=== PATIENT | male | born 1950 | race Caucasian/White ===

== ENCOUNTER → 2021-10-27 | Day surgery (SDC) | payer MEDICARE ==
[2021-10-25 12:28] VITALS: BMI 33.0
[~2021-10-27] MED LIST: Lidocaine 1% PF 5 ML VIAL ONE; Sodium Bicarbonate 2.5 MEQ/5 ML VIAL ONE
== END ==
LOC: ULT 13:14
PROVIDERS: ATTEND Specialist
PROC: 0G9H3ZX Drainage of Right Thyroid Gland Lobe, Percutaneous Approach, Diagnostic (ICD-10-PCS; principal; 2021-10-27)
DX: E04.1 Nontoxic single thyroid nodule (principal); Z79.02 Long term (current) use of antithrombotics/antiplatelets; Z79.82 Long term (current) use of aspirin; Z79.84 Long term (current) use of oral hypoglycemic drugs; Z79.899 Other long term (current) drug therapy
CPT/HCPCS: 60100; 76942; 88173

== ENCOUNTER 2021-11-14 06:53 | Outpatient (CLI) | payer MEDICARE ==
[2021-11-14 07:59] LABS: Hemoglobin 12.4 g/dL (13.5-17.5); Mean Corpuscular HGB CONC 31.6 g/dL (32.0-36.0); Mean Corpuscular Hemoglobin 28.8 pg (27.0-33.0); Mean Corpuscular Volume 91.2 fl (81.2-95.1); Mean Platelet Volume 9.6 fl (7.4-10.4); Platelet Count 269 10x3/uL (150-450); RBC Distribution Width 13.3 % (11.5-14.5); White Blood Cell (WBC) Count 7.4 10x3/uL (3.5-10.5)
[2021-11-14 08:09] LABS: Anion Gap 15 mmol/L (10-20); BUN (Urea Nitrogen) 35 mg/dL (8.4-25.7); Calc. Creatinine Clearance 0 mL/min (70-130); Calcium 9.7 mg/dL (7.8-10.44); Carbon Dioxide 27 mmol/L (23-31); Chloride 102 mmol/L (98-107); Glucose 142 mg/dL (80-115); Potassium 4.4 mmol/L (3.5-5.1); Sodium 140 mmol/L (136-145)
[2021-11-14 23:35] LABS: SARS-CoV-2 PCR by NAA DETECTED (NotDetected)
== END 2021-11-14 06:54 | disposition home or self-care (01) ==
LOC: LABBT 06:53
PROVIDERS: ATTEND Specialist
DX: Z01.812 Encounter for preprocedural laboratory examination (principal); U07.1 COVID-19; E04.1 Nontoxic single thyroid nodule
CPT/HCPCS: 80048; 85027; U0003; U0005

== ENCOUNTER 2022-01-30 07:54 | Outpatient (CLI) | payer MEDICARE | END 2022-01-30 07:55 | disposition home or self-care (01) | LOC: BICCT 07:54 | PROVIDERS: ATTEND Internal Medicine Critical Care Medicine | DX: R06.00 Dyspnea, unspecified (principal); J98.4 Other disorders of lung | CPT/HCPCS: 71250 ==

== ENCOUNTER 2022-11-09 08:10 | Outpatient (CLI) | payer MEDICARE | END 2022-11-09 08:11 | disposition home or self-care (01) | LOC: BICCT 08:10 | PROVIDERS: ATTEND Internal Medicine Critical Care Medicine | DX: J84.9 Interstitial pulmonary disease, unspecified (principal); R06.00 Dyspnea, unspecified | CPT/HCPCS: 71250 ==

== ENCOUNTER 2022-12-09 11:02 | Inpatient (IN) | payer MEDICARE ==
[2022-12-09 11:48] LABS: Actual Bicarbonate (HCO3v) 21 mEq/L (22-28); Base Excess -4.9 mEq/L (-2.0 to +3.0); Calcium, Ionized (venous) 1.08 mmol/L (1.16-1.32); Chloride (VBG) 106 mmol/L (98-106); Hemoglobin (Hb) 13.4 g/dL (12.6-17.4); Potassium (VBG) 4.43 mmol/L (3.70-5.30); pH (venous) 7.33 (7.32-7.43)
[2022-12-09 11:54] LABS: #Basophils 0.1 thou/uL (0.0-0.2); #Eosinphils 0.2 thou/uL (0.0-0.7); #Lymphocytes 1.2 thou/uL (1.20-3.40); #Monocytes 0.7 thou/uL (0.11-0.59); #Neutrophils 11.6 thou/uL (1.40-6.50); %Basophils 0.7 % (0.0-1.0); %Eosinophils 1.4 % (0.0-10.0); %Lymphocytes 8.4 % (21.0-51.0); %Monocytes 5.3 % (0.0-10.0); %Neutrophils 84.3 % (42.0-75.0); Hemoglobin 12.7 g/dL (14.0-18.0); Mean Corpuscular HGB CONC 32.9 g/dL (32.0-36.0); Mean Corpuscular Hemoglobin 31.1 pg (27.0-31.0); Mean Corpuscular Volume 94.3 fl (78.0-98.0); Mean Platelet Volume 7.4 fL (7.4-10.4); Platelet Count 294 10x3/uL (130-400); RBC Distribution Width 12.4 % (11.5-14.5); Red Blood Cell (RBC) Count 4.09 mill/uL (4.70-6.10); White Blood Cell (WBC) Count 13.8 10x3/uL (4.8-10.8)
[2022-12-09 12:03] LABS: Bilirubin Negative (Negative); Blood, Urine Negative (Negative); Clarity Clear (Clear); Glucose, Urine (Dipstick) Normal (Negative); Ketone, Urine Negative (Negative); Leukocyte Negative Leu/uL (Negative); Nitrite Negative (Negative); Protein, Urine (Dipstick) Negative (Neg-Trace); Specific Gravity, Urine 1.013 (1.002-1.036); Urobilinogen Normal mg/dL (Less than 2); pH, Urine 6.5 (5.0-9.0)
[2022-12-09] MEDS ORDERED: Iopamidol-370 76% 500 ML MDV (1 ML CHARGE) ONE (12:15)
[2022-12-09 12:16] LABS: ALT (SGPT) 24 U/L (8-55); AST (SGOT) 20 U/L (5-34); Albumin 4.5 g/dL (3.4-4.8); Alkaline Phosphatase 75 U/L (40-110); Anion Gap 17 mmol/L (10-20); BUN (Urea Nitrogen) 33 mg/dL (8.4-25.7); Bilirubin, Total 0.5 mg/dL (0.2-1.2); CK (CPK) 65 U/L (30-200); Calc. Creatinine Clearance 0 mL/min (70-130); Calcium 9.1 mg/dL (7.8-10.44); Carbon Dioxide 19 mmol/L (23-31); Chloride 108 mmol/L (98-107); Estimated GFR 46; Glucose 133 mg/dL (83-110); Magnesium 2.4 mg/dL (1.6-2.6); Protein, Total 7.5 g/dL (5.8-8.1); Sodium 140 mmol/L (136-145)
[2022-12-09] MEDS ORDERED: Ondansetron PF 4 MG/2 ML Vial ONE (12:39)
[2022-12-09] MEDS ORDERED: Aspirin Chewable 81 MG TAB ONE ×2 (15:28→15:49)
[2022-12-09] MEDS ORDERED: fentaNYL 50 mcg/mL 1 mL Vial ONE (15:39)
[2022-12-09] MEDS ORDERED: Senokot S 8.6-50 MG TAB PO PRN (18:31)
[2022-12-09] MEDS ORDERED: Acetaminophen 650 MG Suppository PR PRN (18:31)
[2022-12-09] MEDS ORDERED: Dextrose 5% in Water 1,000 ML IV PRN (19:26)
[2022-12-09] MEDS ORDERED: Dextrose 50% Abboject 50 ML SYRINGE SLOW IVP PRN (19:26)
[2022-12-09] MEDS: Pramipexole Di-HCl 1 MG TAB PO SCH (20:53)
[2022-12-09] MEDS: Rosuvastatin 20 MG TAB PO SCH (20:54)
[2022-12-09] MEDS: tiZANidine HCl 4 MG TAB PO SCH (21:00)
[2022-12-10] MEDS: Levothyroxine Sodium 50 MCG TAB PO SCH (05:37)
[2022-12-10] MEDS: tiZANidine HCl 4 MG TAB PO SCH ×3 (05:37→21:18)
[2022-12-10 06:06] LABS: #Eosinphils 0.4 thou/uL (0.0-0.7); #Lymphocytes 1.2 thou/uL (1.20-3.40); #Monocytes 0.6 thou/uL (0.11-0.59); #Neutrophils 6.2 thou/uL (1.40-6.50); %Basophils 0.6 % (0.0-1.0); %Eosinophils 4.5 % (0.0-10.0); %Lymphocytes 13.6 % (21.0-51.0); %Monocytes 7.5 % (0.0-10.0); %Neutrophils 73.9 % (42.0-75.0); Hemoglobin 11.6 g/dL (14.0-18.0); Mean Corpuscular HGB CONC 34.2 g/dL (32.0-36.0); Mean Corpuscular Volume 93.5 fl (78.0-98.0); Mean Platelet Volume 7.4 fL (7.4-10.4); Platelet Count 224 10x3/uL (130-400); RBC Distribution Width 12.5 % (11.5-14.5); Red Blood Cell (RBC) Count 3.63 mill/uL (4.70-6.10); White Blood Cell (WBC) Count 8.5 10x3/uL (4.8-10.8)
[2022-12-10 06:33] LABS: ALT (SGPT) 21 U/L (8-55); AST (SGOT) 23 U/L (5-34); Albumin 3.7 g/dL (3.4-4.8); Alkaline Phosphatase 69 U/L (40-110); Anion Gap 9 mmol/L (10-20); BUN (Urea Nitrogen) 30 mg/dL (8.4-25.7); Bilirubin, Total 0.5 mg/dL (0.2-1.2); Calc. Creatinine Clearance 58 mL/min (70-130); Calcium 9.1 mg/dL (7.8-10.44); Carbon Dioxide 25 mmol/L (23-31); Cardiac Risk 2.5 (Less than 4.5); Chloride 110 mmol/L (98-107); Cholesterol 84 mg/dl (< 200 Desired); Estimated GFR 42; Globulin 2.7 g/dL (2.4-3.5); Glucose 144 mg/dL (83-110); HDL Cholesterol 33 mg/dL (>60 Neg Risk); LDL Cholesterol, Calculated 35 mg/dL; Potassium 4.4 mmol/L (3.5-5.1); Protein, Total 6.4 g/dL (5.8-8.1); Sodium 140 mmol/L (136-145); Triglycerides 78 mg/dL (Less than 150)
[2022-12-10] MEDS: Multivitamin W/ Minerals 1 TAB PO SCH (08:58)
[2022-12-10] MEDS ORDERED: Amlodipine 10 MG TAB PO SCH (09:00)
[2022-12-10] MEDS ORDERED: Non-Formulary Item 1 EACH (Losartan Potassium [Losartan Potassium] 100 MG Tablet) PO SCH (09:00)
[2022-12-10] MEDS ORDERED: Aspirin Chewable 81 MG TAB PO SCH (09:00)
[2022-12-10] MEDS ORDERED: Clopidogrel Bisulfate 75 MG TAB PO SCH (09:00)
[2022-12-10] MEDS: HYDROcodone/Acetaminophen 5/325 mg Tablet PO PRN ×2 (09:04→21:16)
[2022-12-10] MEDS: Rosuvastatin 20 MG TAB PO SCH (21:18)
[2022-12-10] MEDS: Pramipexole Di-HCl 1 MG TAB PO SCH (23:48)
[2022-12-11] MEDS: Levothyroxine Sodium 50 MCG TAB PO SCH (07:43)
[2022-12-11] MEDS: tiZANidine HCl 4 MG TAB PO SCH ×3 (07:44→21:33)
[2022-12-11] MEDS: Multivitamin W/ Minerals 1 TAB PO SCH (08:25)
[2022-12-11 08:38] LABS: #Basophils 0.1 thou/uL (0.0-0.2); #Eosinphils 0.5 thou/uL (0.0-0.7); #Lymphocytes 1.3 thou/uL (1.20-3.40); #Monocytes 0.8 thou/uL (0.11-0.59); #Neutrophils 7.2 thou/uL (1.40-6.50); %Basophils 0.5 % (0.0-1.0); %Eosinophils 5.5 % (0.0-10.0); %Lymphocytes 12.9 % (21.0-51.0); %Monocytes 7.8 % (0.0-10.0); %Neutrophils 73.2 % (42.0-75.0); Hemoglobin 11.6 g/dL (14.0-18.0); Mean Corpuscular HGB CONC 33.2 g/dL (32.0-36.0); Mean Corpuscular Hemoglobin 30.9 pg (27.0-31.0); Mean Platelet Volume 7.1 fL (7.4-10.4); Platelet Count 230 10x3/uL (130-400); RBC Distribution Width 12.5 % (11.5-14.5); Red Blood Cell (RBC) Count 3.75 mill/uL (4.70-6.10); White Blood Cell (WBC) Count 9.9 10x3/uL (4.8-10.8)
[2022-12-11 08:55] LABS: Anion Gap 12 mmol/L (10-20); BUN (Urea Nitrogen) 25 mg/dL (8.4-25.7); Calc. Creatinine Clearance 66 mL/min (70-130); Calcium 9.3 mg/dL (7.8-10.44); Carbon Dioxide 23 mmol/L (23-31); Chloride 110 mmol/L (98-107); Estimated GFR 49; Glucose 105 mg/dL (83-110); Potassium 4.2 mmol/L (3.5-5.1); Sodium 141 mmol/L (136-145)
[2022-12-11] MEDS ORDERED: CEFAZOLIN 2 GM in Sodium Chloride 0.9% 100 ML IVPB SCH (09:00)
[2022-12-11] MEDS ORDERED: Polyethylene Glycol 3350 17 GM Packet PO PRN (13:10)
[2022-12-11] MEDS ORDERED: Bisacodyl 10 MG SUPP PR PRN (13:11)
[2022-12-11] MEDS ORDERED: Losartan 25 MG TAB PO SCH (13:15)
[2022-12-11] MEDS ORDERED: Polyethylene Glycol 3350 17 GM Packet PO SCH (13:15)
[2022-12-11] MEDS ORDERED: Amlodipine 10 MG TAB PO SCH (13:15)
[2022-12-11] MEDS: HumaLOG 300 UNITS/3 ML VIAL SC PRN (13:18)
[2022-12-11] MEDS ORDERED: Pramipexole Di-HCl 1 MG TAB PO SCH (14:00)
[2022-12-11] MEDS: Rosuvastatin 20 MG TAB PO SCH (21:32)
[2022-12-11] MEDS: HYDROcodone/Acetaminophen 5/325 mg Tablet PO PRN (21:33)
[2022-12-11 22:55] VITALS: BMI 32.6
[2022-12-12 05:13] LABS: #Eosinphils 0.6 thou/uL (0.0-0.7); #Lymphocytes 1.6 thou/uL (1.20-3.40); #Monocytes 0.8 thou/uL (0.11-0.59); #Neutrophils 5.3 thou/uL (1.40-6.50); %Basophils 0.6 % (0.0-1.0); %Eosinophils 7.2 % (0.0-10.0); %Lymphocytes 19.3 % (21.0-51.0); %Monocytes 9.9 % (0.0-10.0); %Neutrophils 63.1 % (42.0-75.0); Hemoglobin 11.4 g/dL (14.0-18.0); Mean Corpuscular HGB CONC 32.3 g/dL (32.0-36.0); Mean Corpuscular Hemoglobin 30.5 pg (27.0-31.0); Mean Corpuscular Volume 94.3 fl (78.0-98.0); Mean Platelet Volume 7.5 fL (7.4-10.4); Platelet Count 250 10x3/uL (130-400); RBC Distribution Width 12.5 % (11.5-14.5); Red Blood Cell (RBC) Count 3.73 mill/uL (4.70-6.10); White Blood Cell (WBC) Count 8.4 10x3/uL (4.8-10.8)
[2022-12-12 05:34] LABS: Anion Gap 9 mmol/L (10-20); BUN (Urea Nitrogen) 24 mg/dL (8.4-25.7); Calc. Creatinine Clearance 79 mL/min (70-130); Carbon Dioxide 19 mmol/L (23-31); Chloride 113 mmol/L (98-107); Estimated GFR 62; Glucose 123 mg/dL (83-110); Potassium 4.3 mmol/L (3.5-5.1); Sodium 137 mmol/L (136-145)
[2022-12-12] MEDS: tiZANidine HCl 4 MG TAB PO SCH ×3 (06:40→21:27)
[2022-12-12] MEDS: Levothyroxine Sodium 50 MCG TAB PO SCH (06:40)
[2022-12-12] MEDS: Amlodipine 10 MG TAB PO SCH (08:49)
[2022-12-12] MEDS: Losartan 25 MG TAB PO SCH (08:49)
[2022-12-12] MEDS: Multivitamin W/ Minerals 1 TAB PO SCH (08:49)
[2022-12-12] MEDS: Polyethylene Glycol 3350 17 GM Packet PO SCH (08:50)
[2022-12-12] MEDS: HumaLOG 300 UNITS/3 ML VIAL SC PRN (12:51)
[2022-12-12] MEDS: Pramipexole Di-HCl 1 MG TAB PO SCH (20:05)
[2022-12-12] MEDS: HYDROcodone/Acetaminophen 5/325 mg Tablet PO PRN (20:50)
[2022-12-12] MEDS: Rosuvastatin 20 MG TAB PO SCH (20:50)
[2022-12-12] MEDS ORDERED: Pramipexole Di-HCl 1 MG TAB PO SCH (21:00)
[2022-12-13] MEDS: Levothyroxine Sodium 50 MCG TAB PO SCH (05:32)
[2022-12-13] MEDS: tiZANidine HCl 4 MG TAB PO SCH ×3 (05:32→20:39)
[2022-12-13] MEDS ORDERED: Fentanyl 250 MCG/5 ML VIAL ONE (06:13)
[2022-12-13] MEDS ORDERED: Thrombin 5000 UNITS/5 ML VIAL ONE (06:24)
[2022-12-13 06:28] LABS: #Basophils 0.1 thou/uL (0.0-0.2); #Eosinphils 0.5 thou/uL (0.0-0.7); #Lymphocytes 1.6 thou/uL (1.20-3.40); #Monocytes 0.9 thou/uL (0.11-0.59); #Neutrophils 7.8 thou/uL (1.40-6.50); %Basophils 0.5 % (0.0-1.0); %Eosinophils 4.4 % (0.0-10.0); %Lymphocytes 14.7 % (21.0-51.0); %Monocytes 8.4 % (0.0-10.0); Hemoglobin 12.9 g/dL (14.0-18.0); Mean Corpuscular HGB CONC 33.3 g/dL (32.0-36.0); Mean Corpuscular Hemoglobin 31.2 pg (27.0-31.0); Mean Corpuscular Volume 93.7 fl (78.0-98.0); Mean Platelet Volume 7.2 fL (7.4-10.4); Platelet Count 256 10x3/uL (130-400); RBC Distribution Width 12.7 % (11.5-14.5); Red Blood Cell (RBC) Count 4.14 mill/uL (4.70-6.10); White Blood Cell (WBC) Count 10.8 10x3/uL (4.8-10.8)
[2022-12-13 06:48] LABS: Anion Gap 11 mmol/L (10-20); BUN (Urea Nitrogen) 29 mg/dL (8.4-25.7); Calc. Creatinine Clearance 73 mL/min (70-130); Calcium 9.6 mg/dL (7.8-10.44); Carbon Dioxide 22 mmol/L (23-31); Chloride 110 mmol/L (98-107); Estimated GFR 56; Glucose 109 mg/dL (83-110); Potassium 4.3 mmol/L (3.5-5.1); Sodium 139 mmol/L (136-145)
[2022-12-13] MEDS ORDERED: CEFAZOLIN 2 GM VIAL ONE (06:55)
[2022-12-13] MEDS ORDERED: Sodium Chloride 0.9% 100 ML ONE ×2 (06:55→19:17)
[2022-12-13] MEDS ORDERED: Ondansetron PF 4 MG/2 ML Vial ONE (07:11)
[2022-12-13] MEDS ORDERED: Rocuronium Bromide 10 MG/ML (10ML VIAL) ONE (07:11)
[2022-12-13] MEDS ORDERED: PROPOFOL 200 MG/20 ML VIAL ONE (07:11)
[2022-12-13] MEDS ORDERED: Dexamethasone 20 MG/5 ML VIAL ONE (07:11)
[2022-12-13] MEDS ORDERED: Lidocaine 1% PF 5 ML VIAL ONE (07:11)
[2022-12-13] MEDS ORDERED: Phenylephrine 10 MG/ML VIAL ONE (07:11)
[2022-12-13] MEDS ORDERED: ePHEDrine Sulfate 50 MG/10 ML VIAL ONE (07:11)
[2022-12-13] MEDS ORDERED: PHENYLEPHRINE-NS 100 MCG/ML 10 ML SYRINGE ONE (07:54)
[2022-12-13] MEDS ORDERED: SUGAMMADEX SODIUM 200 MG/2 ML VIAL ONE (08:39)
[2022-12-13] MEDS ORDERED: Morphine 2 MG/ML VIAL SLOW IVP PRN (08:55)
[2022-12-13] MEDS ORDERED: Ondansetron PF 4 MG/2 ML Vial IVP PRN (08:55)
[2022-12-13] MEDS ORDERED: fentaNYL 50 mcg/mL 1 mL Vial ONE (09:12)
[2022-12-13] MEDS: Amlodipine 10 MG TAB PO SCH (12:12)
[2022-12-13] MEDS: Losartan 25 MG TAB PO SCH (12:13)
[2022-12-13] MEDS: Multivitamin W/ Minerals 1 TAB PO SCH (12:13)
[2022-12-13] MEDS: Sodium Chloride 0.9% 1,000 ML IV SCH ×2 (12:14→20:41)
[2022-12-13] MEDS: Polyethylene Glycol 3350 17 GM Packet PO SCH (12:14)
[2022-12-13] MEDS: traMADol HCl 50 MG TAB PO PRN ×2 (12:53→18:02)
[2022-12-13] MEDS: CEFAZOLIN 2 GM in Sodium Chloride 0.9% 100 ML IVPB SCH (15:10)
[2022-12-13] MEDS: HumaLOG 300 UNITS/3 ML VIAL SC PRN ×2 (16:41→21:31)
[2022-12-13] MEDS: Pramipexole Di-HCl 1 MG TAB PO SCH (18:05)
[2022-12-13] MEDS: HYDROcodone/Acetaminophen 5/325 mg Tablet PO PRN (20:39)
[2022-12-13] MEDS: Rosuvastatin 20 MG TAB PO SCH (20:39)
[2022-12-14] MEDS: CEFAZOLIN 2 GM in Sodium Chloride 0.9% 100 ML IVPB SCH (00:11)
[2022-12-14] MEDS: tiZANidine HCl 4 MG TAB PO SCH ×3 (05:47→21:00)
[2022-12-14] MEDS: Levothyroxine Sodium 50 MCG TAB PO SCH (05:48)
[2022-12-14 06:42] LABS: #Lymphocytes 0.6 thou/uL (1.20-3.40); #Monocytes 0.8 thou/uL (0.11-0.59); %Basophils 0.2 % (0.0-1.0); %Eosinophils 0.1 % (0.0-10.0); %Lymphocytes 5.9 % (21.0-51.0); %Monocytes 7.8 % (0.0-10.0); %Neutrophils 86.2 % (42.0-75.0); Hemoglobin 11.5 g/dL (14.0-18.0); Mean Corpuscular HGB CONC 32.6 g/dL (32.0-36.0); Mean Corpuscular Hemoglobin 30.5 pg (27.0-31.0); Mean Corpuscular Volume 93.7 fl (78.0-98.0); Mean Platelet Volume 7.3 fL (7.4-10.4); Platelet Count 244 10x3/uL (130-400); RBC Distribution Width 12.5 % (11.5-14.5); Red Blood Cell (RBC) Count 3.76 mill/uL (4.70-6.10); White Blood Cell (WBC) Count 10.5 10x3/uL (4.8-10.8)
[2022-12-14 07:00] LABS: Anion Gap 12 mmol/L (10-20); BUN (Urea Nitrogen) 33 mg/dL (8.4-25.7); Calc. Creatinine Clearance 68 mL/min (70-130); Calcium 9.2 mg/dL (7.8-10.44); Carbon Dioxide 23 mmol/L (23-31); Chloride 109 mmol/L (98-107); Estimated GFR 52; Glucose 159 mg/dL (83-110); Potassium 4.8 mmol/L (3.5-5.1); Sodium 139 mmol/L (136-145)
[2022-12-14] MEDS: Multivitamin W/ Minerals 1 TAB PO SCH (08:14)
[2022-12-14] MEDS: Amlodipine 10 MG TAB PO SCH (08:15)
[2022-12-14] MEDS: Losartan 25 MG TAB PO SCH (08:15)
[2022-12-14] MEDS: Polyethylene Glycol 3350 17 GM Packet PO SCH (08:15)
[2022-12-14] MEDS: Sodium Chloride 0.9% 1,000 ML IV SCH ×2 (11:14→23:02)
[2022-12-14] MEDS: HYDROcodone/Acetaminophen 5/325 mg Tablet PO PRN ×2 (14:22→21:00)
[2022-12-14] MEDS: traMADol HCl 50 MG TAB PO PRN (16:03)
[2022-12-14] MEDS: Pramipexole Di-HCl 1 MG TAB PO SCH (18:02)
[2022-12-14] MEDS: Rosuvastatin 20 MG TAB PO SCH (21:00)
[2022-12-15] MEDS: tiZANidine HCl 4 MG TAB PO SCH ×3 (05:48→20:54)
[2022-12-15] MEDS: Levothyroxine Sodium 50 MCG TAB PO SCH (05:48)
[2022-12-15 07:03] LABS: #Eosinphils 0.1 thou/uL (0.0-0.7); #Monocytes 1.1 thou/uL (0.11-0.59); #Neutrophils 5.9 thou/uL (1.40-6.50); %Basophils 0.2 % (0.0-1.0); %Eosinophils 0.8 % (0.0-10.0); %Lymphocytes 12.1 % (21.0-51.0); %Monocytes 13.5 % (0.0-10.0); %Neutrophils 73.4 % (42.0-75.0); Hemoglobin 11.7 g/dL (14.0-18.0); Mean Corpuscular HGB CONC 33.1 g/dL (32.0-36.0); Mean Corpuscular Hemoglobin 30.6 pg (27.0-31.0); Mean Corpuscular Volume 92.4 fl (78.0-98.0); Mean Platelet Volume 7.4 fL (7.4-10.4); Platelet Count 225 10x3/uL (130-400); RBC Distribution Width 12.4 % (11.5-14.5); Red Blood Cell (RBC) Count 3.81 mill/uL (4.70-6.10)
[2022-12-15 07:20] LABS: Chloride 105 mmol/L (98-107); Potassium 4.6 mmol/L (3.5-5.1); Sodium 136 mmol/L (136-145)
[2022-12-15 07:21] LABS: Calcium 9.1 mg/dL (7.8-10.44); Glucose 130 mg/dL (83-110)
[2022-12-15 07:22] LABS: Anion Gap 12 mmol/L (10-20); Carbon Dioxide 24 mmol/L (23-31)
[2022-12-15 07:24] LABS: Calc. Creatinine Clearance 68 mL/min (70-130); Estimated GFR 51
[2022-12-15 07:25] LABS: BUN (Urea Nitrogen) 34 mg/dL (8.4-25.7)
[2022-12-15] MEDS: Multivitamin W/ Minerals 1 TAB PO SCH (08:35)
[2022-12-15] MEDS: Losartan 25 MG TAB PO SCH (08:36)
[2022-12-15] MEDS: Amlodipine 10 MG TAB PO SCH (08:36)
[2022-12-15] MEDS: Polyethylene Glycol 3350 17 GM Packet PO SCH (08:37)
[2022-12-15] MEDS: HYDROcodone/Acetaminophen 5/325 mg Tablet PO PRN ×3 (08:37→20:54)
[2022-12-15] MEDS: Sodium Chloride 0.9% 1,000 ML IV SCH (14:40)
[2022-12-15] MEDS: Pramipexole Di-HCl 1 MG TAB PO SCH (17:57)
[2022-12-15] MEDS: Rosuvastatin 20 MG TAB PO SCH (20:54)
[2022-12-16] MEDS: Sodium Chloride 0.9% 1,000 ML IV SCH (04:03)
[2022-12-16] MEDS: tiZANidine HCl 4 MG TAB PO SCH ×3 (05:24→20:51)
[2022-12-16] MEDS: Levothyroxine Sodium 50 MCG TAB PO SCH (05:24)
[2022-12-16] MEDS: Multivitamin W/ Minerals 1 TAB PO SCH (09:03)
[2022-12-16] MEDS: Polyethylene Glycol 3350 17 GM Packet PO SCH ×2 (09:04→09:10)
[2022-12-16] MEDS: Amlodipine 10 MG TAB PO SCH (09:04)
[2022-12-16] MEDS: Losartan 25 MG TAB PO SCH (09:09)
[2022-12-16] MEDS ORDERED: Phenol 118 ML BOT PO PRN (09:56)
[2022-12-16] MEDS: HumaLOG 300 UNITS/3 ML VIAL SC PRN ×2 (11:41→17:47)
[2022-12-16] MEDS: HYDROcodone/Acetaminophen 5/325 mg Tablet PO PRN ×2 (11:46→20:49)
[2022-12-16] MEDS: Pramipexole Di-HCl 1 MG TAB PO SCH (17:48)
[2022-12-16] MEDS: Rosuvastatin 20 MG TAB PO SCH (20:49)
[2022-12-17] MEDS: tiZANidine HCl 4 MG TAB PO SCH ×3 (05:24→21:18)
[2022-12-17] MEDS: Levothyroxine Sodium 50 MCG TAB PO SCH (05:24)
[2022-12-17] MEDS: Losartan 25 MG TAB PO SCH (08:22)
[2022-12-17] MEDS: Amlodipine 10 MG TAB PO SCH (08:22)
[2022-12-17] MEDS: Multivitamin W/ Minerals 1 TAB PO SCH (08:22)
[2022-12-17] MEDS: Polyethylene Glycol 3350 17 GM Packet PO SCH (08:30)
[2022-12-17] MEDS: HumaLOG 300 UNITS/3 ML VIAL SC PRN (12:20)
[2022-12-17] MEDS: Pramipexole Di-HCl 1 MG TAB PO SCH (17:13)
[2022-12-17] MEDS: HYDROcodone/Acetaminophen 5/325 mg Tablet PO PRN (19:41)
[2022-12-17] MEDS: Rosuvastatin 20 MG TAB PO SCH (21:18)
[2022-12-18] MEDS: tiZANidine HCl 4 MG TAB PO SCH ×3 (06:15→22:32)
[2022-12-18] MEDS: Levothyroxine Sodium 50 MCG TAB PO SCH (06:15)
[2022-12-18] MEDS: Multivitamin W/ Minerals 1 TAB PO SCH (08:32)
[2022-12-18] MEDS: Losartan 25 MG TAB PO SCH (08:32)
[2022-12-18] MEDS: Amlodipine 10 MG TAB PO SCH (08:32)
[2022-12-18] MEDS: Polyethylene Glycol 3350 17 GM Packet PO SCH (08:33)
[2022-12-18] MEDS: HumaLOG 300 UNITS/3 ML VIAL SC PRN (11:59)
[2022-12-18] MEDS: Pramipexole Di-HCl 1 MG TAB PO SCH (17:48)
[2022-12-18] MEDS: traMADol HCl 50 MG TAB PO PRN (17:53)
[2022-12-18] MEDS: Rosuvastatin 20 MG TAB PO SCH (20:08)
[2022-12-18] MEDS: HYDROcodone/Acetaminophen 5/325 mg Tablet PO PRN (20:08)
[2022-12-19] MEDS: tiZANidine HCl 4 MG TAB PO SCH ×3 (05:36→20:53)
[2022-12-19] MEDS: Levothyroxine Sodium 50 MCG TAB PO SCH (05:36)
[2022-12-19] MEDS: Amlodipine 10 MG TAB PO SCH (09:36)
[2022-12-19] MEDS: Losartan 25 MG TAB PO SCH (09:36)
[2022-12-19] MEDS: Polyethylene Glycol 3350 17 GM Packet PO SCH ×2 (09:36→09:39)
[2022-12-19] MEDS: Multivitamin W/ Minerals 1 TAB PO SCH (09:37)
[2022-12-19] MEDS ORDERED: Clopidogrel Bisulfate 75 MG TAB PO SCH (12:15)
[2022-12-19] MEDS: HumaLOG 300 UNITS/3 ML VIAL SC PRN (12:59)
[2022-12-19] MEDS: Pramipexole Di-HCl 1 MG TAB PO SCH (17:21)
[2022-12-19] MEDS: traMADol HCl 50 MG TAB PO PRN (20:53)
[2022-12-19] MEDS: Rosuvastatin 20 MG TAB PO SCH (20:53)
[2022-12-19] MEDS: Zonisamide 100 MG CAP PO SCH (20:55)
[2022-12-19] MEDS ORDERED: Zonisamide 25 MG CAP PO SCH (21:00)
[2022-12-19] MEDS: HYDROcodone/Acetaminophen 5/325 mg Tablet PO PRN (23:40)
[2022-12-20] MEDS: Levothyroxine Sodium 50 MCG TAB PO SCH (05:29)
[2022-12-20] MEDS: HYDROcodone/Acetaminophen 5/325 mg Tablet PO PRN ×2 (05:29→23:08)
[2022-12-20] MEDS: tiZANidine HCl 4 MG TAB PO SCH ×3 (05:30→21:26)
[2022-12-20] MEDS: Polyethylene Glycol 3350 17 GM Packet PO SCH (08:48)
[2022-12-20] MEDS: Alogliptin 6.25 MG TAB PO SCH (08:48)
[2022-12-20] MEDS: Losartan 25 MG TAB PO SCH (08:50)
[2022-12-20] MEDS: Multivitamin W/ Minerals 1 TAB PO SCH (08:50)
[2022-12-20] MEDS: Amlodipine 10 MG TAB PO SCH (08:50)
[2022-12-20] MEDS: Clopidogrel Bisulfate 75 MG TAB PO SCH (08:51)
[2022-12-20] MEDS: Zonisamide 100 MG CAP PO SCH ×2 (08:53→19:55)
[2022-12-20] MEDS: Pramipexole Di-HCl 1 MG TAB PO SCH (18:27)
[2022-12-20] MEDS: Rosuvastatin 20 MG TAB PO SCH (19:55)
[2022-12-20] MEDS: HumaLOG 300 UNITS/3 ML VIAL SC PRN (21:27)
[2022-12-21] MEDS: Levothyroxine Sodium 50 MCG TAB PO SCH (05:21)
[2022-12-21] MEDS: tiZANidine HCl 4 MG TAB PO SCH ×3 (05:21→22:36)
[2022-12-21] MEDS: Alogliptin 6.25 MG TAB PO SCH (08:56)
[2022-12-21] MEDS: Losartan 25 MG TAB PO SCH (08:56)
[2022-12-21] MEDS: Zonisamide 100 MG CAP PO SCH ×2 (08:57→20:46)
[2022-12-21] MEDS: Multivitamin W/ Minerals 1 TAB PO SCH (08:57)
[2022-12-21] MEDS: Clopidogrel Bisulfate 75 MG TAB PO SCH (08:57)
[2022-12-21] MEDS: Polyethylene Glycol 3350 17 GM Packet PO SCH (08:57)
[2022-12-21] MEDS: Amlodipine 10 MG TAB PO SCH (08:57)
[2022-12-21] MEDS: Pramipexole Di-HCl 1 MG TAB PO SCH (18:10)
[2022-12-21] MEDS: Rosuvastatin 20 MG TAB PO SCH (20:44)
[2022-12-21] MEDS: HYDROcodone/Acetaminophen 5/325 mg Tablet PO PRN (20:44)
[2022-12-22] MEDS: Levothyroxine Sodium 50 MCG TAB PO SCH (05:40)
[2022-12-22] MEDS: tiZANidine HCl 4 MG TAB PO SCH ×2 (05:40→14:37)
[2022-12-22 07:50] VITALS: BP 130/72; TEMP 97.8
[2022-12-22] MEDS: Multivitamin W/ Minerals 1 TAB PO SCH (09:07)
[2022-12-22] MEDS: Alogliptin 6.25 MG TAB PO SCH (09:07)
[2022-12-22] MEDS: Amlodipine 10 MG TAB PO SCH (09:07)
[2022-12-22] MEDS: Clopidogrel Bisulfate 75 MG TAB PO SCH (09:07)
[2022-12-22] MEDS: Losartan 25 MG TAB PO SCH (09:07)
[2022-12-22] MEDS: Zonisamide 100 MG CAP PO SCH (09:08)
[2022-12-22] MEDS: Polyethylene Glycol 3350 17 GM Packet PO SCH (09:08)
== END 2022-12-22 16:57 | disposition home or self-care (01) | DRG 471 ==
LOC: ERS 11:02 → INTOOBSV 14:48 → ERHOLD 14:48 → NEURO 17:10 → OBSVTOIN 12-11 13:19 → SJJU 12-12 16:43
PROVIDERS: ADMIT Internal Medicine; ATTEND Internal Medicine
PROC: 0RG20A0 Fusion of 2 or more Cervical Vertebral Joints with Interbody Fusion Device, Anterior Approach, Anterior Column, Open Approach (ICD-10-PCS; principal; 2022-12-13)
PROC: 0RB30ZZ Excision of Cervical Vertebral Disc, Open Approach (ICD-10-PCS; 2022-12-13)
PROC: 00NW0ZZ Release Cervical Spinal Cord, Open Approach (ICD-10-PCS; 2022-12-13)
DX: M48.02 Spinal stenosis, cervical region (principal); G95.19 Other vascular myelopathies; M50.022 Cervical disc disorder at C5-C6 level with myelopathy; I25.10 Atherosclerotic heart disease of native coronary artery without angina pectoris; E78.5 Hyperlipidemia, unspecified; N18.30 Chronic kidney disease, stage 3 unspecified; E11.22 Type 2 diabetes mellitus with diabetic chronic kidney disease; I12.9 Hypertensive chronic kidney disease with stage 1 through stage 4 chronic kidney disease, or unspecified chronic kidney disease; M46.82 Other specified inflammatory spondylopathies, cervical region; M51.26 Other intervertebral disc displacement, lumbar region; I65.21 Occlusion and stenosis of right carotid artery; Z95.5 Presence of coronary angioplasty implant and graft; Z86.73 Personal history of transient ischemic attack (TIA), and cerebral infarction without residual deficits; Z79.82 Long term (current) use of aspirin; Z79.899 Other long term (current) drug therapy; Z79.890 Hormone replacement therapy; Z79.84 Long term (current) use of oral hypoglycemic drugs; Z83.3 Family history of diabetes mellitus; Z83.49 Family history of other endocrine, nutritional and metabolic diseases; Z87.891 Personal history of nicotine dependence
CPT/HCPCS: 36415; 36416; 36430; 70496; 70498; 70551; 71045; 72131; 72141; 72146; 72148; 80048; 80053; 80061; 81003; 82550; 82805; 83605; 83735; 84443; 84484; 85025; 86850; 86900; 86901; 93005; 96372; 96374; 96375; C1713; C1889; G0378; J1100; J1650; J1815; J2370; J2405; J2704; J3010; J3490; P9035; Q9967